=== PATIENT | female | born 1960 | race Caucasian/White ===

== ENCOUNTER 2020-12-04 20:53 | Emergency (ER) | payer OTHER ==
--- NOTE | 2020-12-04 21:25 | EDM.PDOC ---
ED HPI GENERAL MEDICAL PROBLEM - General Chief Complaint: Upper Extremity Injury/Pain Stated Complaint: FISHHOOK Time Seen by Provider: 12/04/20 21:00 Source of Information: Reports: Patient History Limitations: Reports: No Limitations - History of Present Illness INITIAL COMMENTS - FREE TEXT/NARRATIVE: presented to the ER with a fishhook to the left ring finger. tetanus mar 2020 Onset: Sudden Duration: Minutes: (30) Review of Systems - Review of Systems Review Of Systems: See Below Constitutional: Reports: No Symptoms Eyes: Reports: No Symptoms Respiratory: Reports: No Symptoms Cardiovascular: Reports: No Symptoms GI/Abdominal: Reports: No Symptoms Musculoskeletal: Reports: No Symptoms ED EXAM, GENERAL - Physical Exam Exam: See Below Exam Limited By: No Limitations General Appearance: Alert, WD/WN, No Apparent Distress Eye Exam: Bilateral Eye: EOMI Head: Atraumatic Respiratory/Chest: No Respiratory Distress Cardiovascular: Normal Peripheral Pulses Skin Exam: Other (fishook to left ring finger ) Course - Re-Assessments/Exams Free Text/Narrative Re-Assessment/Exam: skin cleaning lidocaine 1% - 2 ml fish hook removal without problems antibiotics ointment and sterile dressing Departure - Departure Time of Disposition: 21:25 Disposition: Home, Self-Care 01 Condition: Good Clinical Impression: [place] injury to finger Qualifiers: Encounter type: initial encounter Laterality: left Qualified Code(s): S69.92XA - Unspecified injury of left wrist, hand and finger(s), initial encounter - Discharge Information *PRESCRIPTION DRUG MONITORING PROGRAM REVIEWED*: Not Applicable *COPY OF PRESCRIPTION DRUG MONITORING REPORT IN PATIENT FÉLIX: Not Applicable Instructions: Skin Foreign Body Forms: ED Department Discharge Additional Instructions: - apply antibiotics ointment on the wound once daily - take tylenol for pain - Problem List & Annotations (1) [place] injury to finger SNOMED Code(s): 99288905 Code(s): S69.90XA - UNSP INJURY OF UNSP WRIST, HAND AND FINGER(S), INIT ENCNTR Status: Acute Priority: Low Qualifiers: Encounter type: initial encounter Laterality: left Qualified Code(s): S69.92XA - Unspecified injury of left wrist, hand and finger(s), initial encounter - Problem List Review Problem List Initiated/Reviewed/Updated: Yes - Assessment/Plan Plan: - apply antibiotics ointment on the wound once daily - take tylenol for pain
== END 2020-12-04 21:40 | disposition home or self-care (01) ==
LOC: EDBD 20:53 → LB.ED 20:53
DX: S60.455A Superficial foreign body of left ring finger, initial encounter (principal); W45.8XXA Other foreign body or object entering through skin, initial encounter
CPT/HCPCS: 99282